=== PATIENT | female | born 1970 | race Caucasian/White ===

== ENCOUNTER 2023-01-12 15:11 | Outpatient (CLI) | payer OTHER, SELFPAY ==
--- NOTE | 2023-01-12 15:30 | CRLHL7_ITS ---
For Patients: As a result of the Cures Act, medical imaging exams and procedure reports are released immediately into your electronic medical record. You may view this report before your referring provider. If you have questions, please contact your health care provider. DXA BONE MINERAL DENSITY STUDY, 01/12/2023 Reason for exam: Hyperparathyroid disease. Current height (inches): 64.0 Weight (lbs.): 235.0 Menopause age: 32 Ethnicity: White 1. Have you had a previous hip or vertebral fracture? No. 2. Have you had any fractures during your adult life which did not result from significant trauma (e.g., auto accident)? No. 3. Did either of your parents have a hip fracture? No. 4. Do you smoke? No. 5. Have you ever taken Glucocorticoids? No. 6. Do you have rheumatoid arthritis? No. 7. Do you have secondary osteoporosis? No. 8. Do you drink 3 or more alcoholic drinks per day? No. 9. Are you being treated for osteoporosis? No. 10. Have you ever taken any of the following medications: Actonel, Evista, Fosamax, Miacalcin, Reclast, Boniva, Forteo, HRT (i.e., estrogen/hormone therapy), Protelos, Prolia, Vitamin D, Calcium, other ??? please specify. ANSWER: Yes; vitamin D, calcium. 11. Do you have any of the following medical conditions: Anorexia or bulimia, asthma or emphysema, end stage renal disease, hyperparathyroidism, any seizure disorders, cancer, inflammatory bowel diseases, hysterectomy, other ??? please specify. ANSWER: Yes; hyperparathyroidism, inflammatory bowel disease, hysterectomy. 12. What was your maximum height (inches)? 65. 13. Do you perform weightbearing exercise regularly? No. 14. Do you regularly consume dairy products? No. 15. Do you drink caffeinated beverages? Yes. 16. At what age did your period start? 10. 17. Are you premenopausal? No. 18. How many full-term pregnancies have you had? 3. 19. Have you ever missed your period for more than 6 months in a row (not including or menopause)? No. TECHNIQUE: Bone mineral density study was performed using the [employer]. FINDINGS: The results of the study expressed as bone mineral density (BMD) are as follows: Lumbar Spine L1 to L4: BMD: 1.281 g/cm2. T-score: 2.1. Z-score: 3.1. Neck Left: BMD: 0.983 g/cm2. T-score: 1.2. Z-score: 2.2. Right: BMD: 1.048 g/cm2. T-score: 1.8. Z-score: 2.8. Total Left: BMD: 1.313 g/cm2. T-score: 3.0. Z-score: 3.7. Right: BMD: 1.347 g/cm2. T-score: 3.3. Z-score: 3.9. IMPRESSION: Normal bone density. LONDON RONQUILLO M.D. Diagnostic Radiologist [email or web address] Transcribed: 4:[address]/Dictated by: London Ronquillo MD @ 01/13/2023 5:50:00 AM (Electronically Signed)
--- NOTE | 2023-01-12 16:00 | CRLHL7_ITS ---
For Patients: As a result of the Cures Act, medical imaging exams and procedure reports are released immediately into your electronic medical record. You may view this report before your referring provider. If you have questions, please contact your health care provider. INDICATION: Hypothyroidism COMPARISON: none TECHNIQUE: Monterroso scale and color Doppler images were acquired of the thyroid gland. FINDINGS: Right thyroidectomy. Left thyroid lobe is diffusely enlarged and heterogeneous measuring 7.6 x 3.0 x 2.5 cm. The isthmus is thickened measuring 1.6 cm. There are no suspicious masses or nodules. The color Doppler images demonstrate normal vascularity. There is no evidence of cervical lymphadenopathy or parathyroid mass. IMPRESSION: Diffusely enlarged and heterogeneous left thyroid lobe. No suspicious nodule. No adenopathy. Dictated by London Dalal MD @ 01/13/2023 8:24:40 AM (Electronically Signed)
== END 2023-01-12 15:12 | disposition home or self-care (01) ==
LOC: RAD 15:11
PROVIDERS: PCP Internal Medicine Endocrinology, Diabetes & Metabolism; Visit Provider Internal Medicine Endocrinology, Diabetes & Metabolism
DX: E21.3 Hyperparathyroidism, unspecified (principal); E03.9 Hypothyroidism, unspecified
CPT/HCPCS: 76536; 77080

== ENCOUNTER 2023-11-17 12:23 | Outpatient (CLI) | payer BC, SELFPAY ==
--- OUTSIDE RECORDS SUMMARY | 2023-11-17 12:30 | XMS_ITS | Encounter Summary ---
Author Organization [facility] Address [address] [place] [address]. [place] [address] Care Team Providers Care Radio Division Captain Name Role Phone Tarsha Zelaya PA-C Unavailable +- [phone] Tarsha Zelaya PA-C Primary Care Provid er Reason for Referral * Consultation (Routine: Next available opening) - Pending Review Specialty Diagnoses / Procedures Referred By Fredy french Referred To Contact Gastroenterology Diagnoses Epigastric pain Valeria Mon MD [address] [place] [address] [facility] [address] [place] [address] Referral ID Status Reason Start Date Expiration Date V isits Requested Visits Authorized [id number] Pending Review 08/18/2023 08/17/2024 1 1 Comments Please be aware that coverage of these services is subject to the terms and limitations of your health insurance plan. Call member services at your health plan with any benefit or coverage questions. [facility] [address] [facility] [address] - appt line [phone] - fax * Diagnostic Imaging Ultrasound (Routine) - Pending Review Specialty Diagnoses / Procedures Referred By Contac t Referred To Contact Diagnoses Epigastric pain Procedures US Abdomen Complete Valeria Mon MD [address] [id number] [facility] [id number] [place] [address] [address] [place] [address] Referral ID Status Reason Start Date Expiration Date V isits Requested Visits Authorized [id number] Pending Review 08/18/2023 08/17/2024 1 1 * Diagnostic Imaging Other (Routine: Next available opening) - Pending Review Specialty Diagnoses / Procedures Referred By Contac t Referred To Contact Diagnoses Epigastric pain Valeria Mon MD [address], [place] [address] [place] [address] Referral ID Status Reason Start Date Expiration Date V isits Requested Visits Authorized [id number] Pending Review 08/18/2023 08/17/2024 1 1 Question Answer Preferred Location: External Affiliated Partners External Affiliated Partner Locations: N: [facility] - Various Locations N: [facility] N: [facility] - University Scheduling Instructions: Please call to schedule your appointment Class External referral [5] Comments Prior authorization is required for MRI/MRA, CT, Dexa Scans and Worker's Compensation cases. External Affiliated Partners Please call to schedule your appointment Reason for Visit * Reason Comments Recheck Medication Fasting today, refil l medications Encounter Details Date Type Department Care Team (Late st Contact Info) Description 08/18/2023 9:30 AM CDT Office Visit [facility] [address] [place] [address] [address] [phone] Valeria Mon MD [address] [place] [address] Epigastric pain (Primary Dx); Mixed hyperlipidemia; Essential hypertension, benign; Hypothyroidism, unspecified type; Type 2 diabetes mellitus without complication, without long-term current use of insulin (H); Gastroesophageal reflux disease without esophagitis; Migraine without aura and without status migrainosus, not intractable; Herpes simplex virus infection; Seasonal allergic rhinitis due to other allergic trigger Social History Tobacco Use Types Packs/Day Years Used Date Smoking Tobacco: Never Passive Smoke Exposure: Never Smokeless Tobacco: Never Alcohol Use Standard Drinks/Week Comments Yes 0.8 (1 standard drink = 0.6 oz p ure alcohol) occ PHQ-2 Answer Date Recorded PHQ-2 Score 0 08/18/2023 Adolescent Education Answer Date Record ed Getting School Help Needed Not on file 11/26 Sex and Gender Information Value Date Recorded Sex Assigned at Female 06/11/2021 3:02 PM CDT Gender Identity Not on file Sexual Orientation Not on file documented as of this encounter Last Filed Vital Signs Vital Sign Reading Time Taken Comments Blood Pressure 118/82 08/18/2023 9:31 AM CDT Pulse 74 08/18/2023 9:31 AM CDT Temperature 36.4 ??C (97.6 ??F) 08/18/2023 9:31 AM CD T Respiratory Rate - - Oxygen Saturation 97% 08/18/2023 9:31 AM CDT Inhaled Oxygen Concentration - - Weight 95.7 kg (211 lb) 08/18/2023 9:31 AM CDT Height - - Body Mass Index 35.66 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 encounter Progress Notes * Valeria Mon MD - 08/18/2023 9:30 AM CDT Assessment & Plan Problem List Items Addressed This Visit Respiratory Allergic rhinitis Relevant Medications fluticasone (FLONASE) 50 MCG/ACT nasal spray Endocrine Hypothyroidism Relevant Medications levothyroxine (SYNTHROID/LEVOTHROID) 125 MCG tablet Diabetes mellitus, type 2 (H) Relevant Medications metFORMIN (GLUCOPHAGE XR) 500 MG 24 hr tablet levothyroxine (SYNTHROID/LEVOTHROID) 125 MCG tablet Other Relevant Orders ALBUMIN RANDOM URINE QUANTITATIVE (BFP) (Completed) FOOT EXAM NO CHARGE [07804.114] (Completed) HEMOGLOBIN A1C (BFP) (Completed) VENOUS COLLECTION (Completed) Circulatory Essential hypertension, benign Relevant Medications chlorthalidone (HYGROTON) 25 MG tablet losartan (COZAAR) 50 MG tablet potassium chloride ER (MICRO-K) 10 MEQ CR capsule Other Visit Diagnoses Epigastric pain - Primary Relevant Orders Radiology Referral (Affiliate Use Only) US Abdomen Complete Adult GI Contracts Representative Referral - Consult Only - To a [facility] Location (Use POS/Location) Comprehensive Metobolic Panel (BFP) Lipase ([facility]) Mixed hyperlipidemia Relevant Medications atorvastatin (LIPITOR) 20 MG tablet Gastroesophageal reflux disease without esophagitis Relevant Medications omeprazole (PRILOSEC) [address] capsule Migraine without aura and without status migrainosus, not intractable Herpes simplex virus infection 1. Mixed hyperlipidemia She is doing well on the medications, refilled. - atorvastatin (LIPITOR) 20 MG tablet; Take 1 tablet (20 mg) by mouth daily Dispense: 90 tablet; Refill: 1 2. Essential hypertension, benign Controlled on medications, refilled. - chlorthalidone (HYGROTON) 25 MG tablet; Take 1 tablet (25 mg) by mouth daily Dispense: 90 tablet;Refill: 1 - losartan (COZAAR) 50 MG tablet; Take 1 tablet (50 mg) by mouth daily Dispense: 90 tablet; Refill:1 - potassium chloride ER (MICRO-K) 10 MEQ CR capsule; Take 1 capsule (10 mEq) by mouth daily Dispense: 90 capsule; Refill: 1 3. Hypothyroidism, unspecified type Now followed by endocrinology. - levothyroxine (SYNTHROID/LEVOTHROID) 125 MCG tablet; Take 2 tablets (250 mcg) by mouth daily 4. Type 2 diabetes mellitus without complication, without long-term current use of insulin (H) She is doing well on medications, blood sugars are controlled. Refilled. - metFORMIN (GLUCOPHAGE XR) 500 MG 24 hr tablet; Take 1 tablet (500 mg) by mouth daily (with dinner) Dispense: 90 tablet; Refill: 1 - ALBUMIN RANDOM URINE QUANTITATIVE (BFP) - FOOT EXAM NO CHARGE [26447.114] - HEMOGLOBIN A1C (BFP) - VENOUS COLLECTION 5. Gastroesophageal reflux disease without esophagitis Mostly controlled but she is having episodes of epigastric pain. - omeprazole (PRILOSEC) [address] capsule; TAKE 1 CAPSULE BY MOUTH DAILY 30 MINUTES BEFORE BREAKFASTAND THEN EAT BREAKFAST Dispense: 90 capsule; Refill: 1 6. Migraine without aura and without status migrainosus, not intractable Followed by neurology. 7. Herpes simplex virus infection 8. Epigastric pain Ultrasound abdomen, she may need another EGD but has seen Gi in the past. So I will refer her back to see [facility] for consult apt. Also check lipase. - Radiology Referral (Affiliate Use Only) - US Abdomen Complete - Adult GI Contracts Representative Referral - Consult Only - To a [facility] Location (Use POS/Location) - Comprehensive Metobolic Panel (BFP) - Lipase ([facility]) 9. Seasonal allergic rhinitis due to other allergic trigger Refilled. Flonase. - fluticasone (FLONASE) 50 MCG/ACT nasal spray; [place] 1 spray into both nostrils daily Dispense: 16g; Refill: 1 BMI Estimated body mass index is 35.66 kg/m?? as calculated from the following: Height as of 02/18/23: 1.638 m (5' 4.5). Weight as of this encounter: 95.7 kg (211 lb). FUTURE APPOINTMENTS: - Follow-up visit in 6 months, we manage her chronic medical care. No follow-ups on file. Valeria Mon MD [facility] Subjective Nursing Notes: Petty Holloway [facility] 08/18/2023 9:37 AM Signed Chief Complaint Patient presents with Recheck Medication Fasting today, refill medications Pre-visit Screening: Immunizations: not up to date - shingrix at pharmacy Colonoscopy: is up to date Mammogram: is up to date Asthma Action Test/Plan: NA PHQ9: NA GAD7: NA Questioned patient about current smoking habits Pt. has never smoked. Ok to leave detailed message on voice mail for today's visit only Yes, phone # [phone] Shaneka Momin is a 53 year old female who presents to clinic today for the following health issues HPI Here for refills on her medications and labs. Diabetes: blood sugars at home are good. She is doingwell on her medications. Other meds:no problems or concerns, is taking regularly: blood pressure, lipids, Over the past few months a few times has pain in epigastric area, couple of minutes or 20 min then it goes away. Has a hiatal hernia. Thinks it could be due to acid reflux. Has had gallbaldder out.istaking omeprazole regularly. It's been a couple of years since last egd, is due to go back to see [facility]. Has seen them in the past. Last summer was last time she saw them. Review of Systems Constitutional, HEENT, cardiovascular, pulmonary, gi and gu systems are negative, except as otherwise noted. Objective BP 118/82 (BP Location: Right arm, Patient Position: Sitting, Cuff Size: Adult Large) Pulse 74 Temp 97.6 ??F (36.4 ??C) (Temporal) Wt 95.7 kg (211 lb) LMP 09/11/2008 SpO2 97% BMI 35.66 kg/m?? Body mass index is 35.66 kg/m??. Physical Exam GENERAL: alert and no distress RESP: lungs clear to auscultation - no rales, rhonchi or wheezes CV: regular rate and rhythm, normal S1 S2, no S3 or S4, no murmur, click or rub, no peripheral edema MS: no gross musculoskeletal defects noted, no edema NEURO: Normal strength and tone, mentation intact and speech normal PSYCH: mentation appears normal, affect normal/bright Diabetic foot exam: normal DP and PT pulses, no trophic changes or ulcerative lesions, and normal sensory exam Results for orders placed or performed in visit on 08/18/23 ALBUMIN RANDOM URINE QUANTITATIVE (BFP) Status: None Result Value Ref Range Albumin mg/L 30 30 Creatinine Urine mg/dL 200 300 mg/dL Albumin Urine mg/g Cr <30 30 MG/G Creatinine HEMOGLOBIN A1C (BFP) Status: Abnormal Result Value Ref Range Hemoglobin A1C 5.9 (A) 4 - 5.6 % documented in this encounter Nursing Notes * Petty Holloway CMA - 08/18/2023 9:30 AM CDT Chief Complaint Patient presents with Recheck Medication Fasting today, refill medications Pre-visit Screening: Immunizations: not up to date - shingrix at pharmacy Colonoscopy: is up to date Mammogram: is up to date Asthma Action Test/Plan: NA PHQ9: NA GAD7: NA Questioned patient about current smoking habits Pt. has never smoked. Ok to leave detailed message on voice mail for today's visit only Yes, phone # [phone] documented in this encounter Plan of Treatment Upcoming Encounters Date Type Department Care Team (Late st Contact Info) Description 12/30/2023 1:00 PM CDT Office Visit [facility] [address] [place] [address] [address] [place] [phone] Tarsha Zelaya PA-C [address] [place] [address] Scheduled Referrals Name Type Priority Associated Diagnoses Orde r Schedule Radiology Referral (Affiliate Use Only) Referral Routine: Next available opening Epigastric pain Ordered: 08/18/2023 Adult GI Contracts Representative Referral - Consult Only - To a [facility] Location (Use POS/Location) Referral Routine: Next available opening Epigastric pain Ordered: 08/18/2023 documented as of this encounter Procedures Procedure Name Priority Date/Time Associated Diagnosis Comments US ABDOMEN COMPLETE Routine 08/23/2023 Epigastric pain LIPASE ([facility]) Routine 08/18/2023 10:32 AM CDT Epigastric pain ALBUMIN RANDOM URINE QUANTITATIVE (BFP) Routine 08/18/2023 10:03 AM CDT Type 2 diabetes mellitus without complication, without long-term current use of insulin (H) HEMOGLOBIN A1C (BFP) Routine 08/18/2023 9:42 AM CDT Type 2 diabetes mellitus without complication, without long-term current use of insulin (H) VA COLLECTION VENOUS BLOOD VENIPUNCTURE Routine 08/18/2023 9:33 AM CDT Type 2 diabetes mellitus without complication, without long-term current use of insulin (H) COMPREHENSIVE METABOLIC PANEL (BFP) Routine 08/18/2023 Epigastric pain documented in this encounter Results * US Abdomen Complete (08/23/2023) Anatomical Region Laterality Modality Abdomen/Pelvis Other Narrative 08/23/2023 [address] [facility], [address] [place] [address] University : 1970 Req Phys: Valeria Mon MD Patient name: SHANEKA MOMIN Clinic: [facility] Dept No: [id number] US ABDOMEN COMPLETE Exam Date: 08/23/2023 EXAM: US ABDOMEN COMPLETE LOCATION: [facility] DATE: 08/23/2023 INDICATION: Epigastric pain. COMPARISON: MR abdomen 07/24/2020 TECHNIQUE: Complete abdominal ultrasound. FINDINGS: GALLBLADDER: Surgically removed. BILE DUCTS: No biliary dilatation. The common duct measures 3 mm. LIVER: Hepatomegaly measuring 18.8 cm. The hepatic echogenicity is increased. Smooth liver contour. No focal mass. RIGHT KIDNEY: Normal size. Normal echogenicity with no hydronephrosis. A masslike echogenic lesion in the interpolar to lower right renal pole measures 1.8 cm LEFT KIDNEY: Normal size. Normal echogenicity with no hydronephrosis or mass. SPLEEN: Mild splenomegaly measuring 14 cm. PANCREAS: The visualized portions are normal. AORTA: Normal in caliber. IVC: Normal where visualized. No ascites. IMPRESSION: 1. Hepatomegaly and hepatic steatosis. 2. Mild splenomegaly. 3. Benign right renal angiomyolipoma. 4. Cholecystectomy. TNOIA ROMANO M.D. Password protected electronic signature by: TASHA Trans: SI Date Of Trans: 08/23/2023 9:11:00AM Page 1 of 2 SHANEKA MOMIN : 1970 Exam: US ABDOMEN COMPLETE Date report approved and signed by interpreting physician: 08/23/2023 9:09:00AM Page 2 of 2 Valeria Mon MD IMG US ORDERABLES * (ABNORMAL) Lipase ([facility]) (08/18/2023 10:32 AM CDT) Lipase 89(H) 7 - 60 U/L [facility] Blood 08/18/2023 10:3 2 AM CDT 08/19/2023 1:38 AM CDT Narrative Resulting Agency Comment Performing Organization Information: ? CB ? [facility] ? [address] [place] [address] ? Oscar Becerril Valeria Mon MD LAB - NON-BEAKER BLO OD LABS [facility] [address] [phone] * ALBUMIN RANDOM URINE QUANTITATIVE (BFP) (08/18/2023 10:03 AM CDT) Albumin mg/L 30 30 [facility] Creatinine Urine mg/dL 200 300 mg/dL [facility] Albumin Urine mg/g Cr <30 30 MG/G Creatinine [facility] Urine 08/18/2023 10:0 3 AM CDT Valeria Mon MD LAB - NON-DELMY NON -BLOOD Performing Organization Address City/[facility]/ZIP Co de Phone Number [facility] INTER[facility] * (ABNORMAL) HEMOGLOBIN A1C (BFP) (08/18/2023 9:42 AM CDT) Hemoglobin A1C 5.9(A) 4 - 5.6 % [facility] Blood 08/18/2023 9:42 AM CDT Valeria Mon MD LAB - NON-DELMY BLO OD LABS [facility] * (ABNORMAL) Comprehensive Metobolic Panel (BFP) (08/18/2023) Carbon Dioxide 30.9 20 - 32 mmol/L [facility] Creatinine 0.95 0.60 - 1.30 mg/dL [facility] Glucose 111(A) 60 - 99 mg/dL [facility] Sodium 140.3 135 - 146 mmol/L [facility] Potassium 3.88 3.5 - 5.3 mmol/L [facility] Chloride 101.0 98 - 110 mmol/L [facility] Protein Total 7.5 6.1 - 8.1 g/dL [facility] Albumin 4.3 3.6 - 5.1 g/dL [facility] Alkaline Phosphatase 78 33 - 130 U/L [facility] ALT 44(A) 0 - 32 U/L [facility] AST 49(A) 0 - 35 U/L [facility] Bilirubin Total 0.7 0.2 - 1.2 mg/dL [facility] Urea Nitrogen 16 7 - 25 mg/dL [facility] Calcium 9.3 8.6 - 10.3 mg/dL [facility] BUN/Creatinine Ratio 17 6 - 32 [facility] Blood 08/18/2023 Valeria Mon MD LAB - NON-BEAKER BLO OD LABS [facility] documented in this encounter Visit Diagnoses Diagnosis Epigastric pain- Primary Abdominal pain, epigastric Mixed hyperlipidemia Essential hypertension, benign Hypothyroidism, unspecified type Type 2 diabetes mellitus without complication, without long-term current use of insulin (H) Gastroesophageal reflux disease without esophagitis Esophageal reflux Migraine without aura and without status migrainosus, not intractable Migraine without aura, without mention of intractable migraine without mention of status migrainosus Herpes simplex virus infection Herpes simplex without mention of complication Seasonal allergic rhinitis due to other allergic trigger documented in this encounter Additional Health Concerns Assessment Noted Time PHQ-9 Depression Total Score: 6 11/02/19 19 9:35 AM CDT documented as of this encounter Care Teams Radio Division Captain Relationship Specialty Start Date End Date Tarsha Zelaya PA-C [address] [id number] PCP - General Family Medicine 08/14/20 Tarsha Zelaya PA-C [address] [address] Assigned PCP 07/29/19 documented as of this encounter
--- OUTSIDE RECORDS SUMMARY | 2023-11-17 12:30 | XMS_ITS | Encounter Summary ---
Author Organization [facility] Address [address] [place] [address] Care Team Providers Care Programming Instructor Name Role Phone Tarsha Zelaya PA-C Unavailable +- [phone] Fermín Santos Unavailable Unavailable Tarsha Zelaya PA-C Primary Care Provid er Encounter Details Date Type Department Care Team (Late Contact Info) Description 07/04/2022 MyC Medical Advice [facility] [address] [place] [phone] Tarsha Zelaya PA-C [address] [place] [address] Social History Tobacco Use Types Packs/Day Years Used Date Smoking Tobacco: Never Smokeless Tobacco: Never Alcohol Use Standard Drinks/Week Comments Yes 0.8 (1 standard drink = 0.6 oz p ure alcohol) occ PHQ-2 Answer Date Recorded PHQ-2 Score 0 03/04/2022 Sex and Gender Information Value Date Recorded Sex Assigned at Female 06/11/2021 3:02 PM CDT Gender Identity Not on file Sexual Orientation Not on file documented as of this encounter Plan of Treatment Upcoming Encounters Date Type Department Care Team (Late Contact Info) Description 12/30/2023 1:00 PM CDT Office Visit [facility] [address] [phone] Tarsha Zelaya PA-C [address] [address] documented as of this encounter Visit Diagnoses Not on filedocumented in this encounter Additional Health Concerns Assessment Noted Time PHQ-9 Depression Total Score: 6 11/02/19 19 9:35 AM CDT documented as of this encounter Care Teams Programming Instructor Relationship Specialty Start Date End Date Tarsha Zelaya PA-C [address] [address] PCP - General Family Medicine 08/14/20 Tarsha Zelaya PA-C [address] [address] Assigned PCP 07/29/19 Fermín Santos MTM Pharmacist 10/11/19 01/02/23 documented as of this encounter
--- OUTSIDE RECORDS SUMMARY | 2023-11-17 12:30 | XMS_ITS | Clinical Summary ---
Author Organization [facility] Address [address] [place] [address]. [place] [address] Care Team Providers Care Steel Cutter Name Role Phone Tarsha Zelaya PA-C Unavailable [phone] Tarsha Zelaya PA-C Primary Care Provid er Allergies Active Allergy Reactions Criticality Noted Date Comments Amlodipine Low 10/11/2017 Peripheral edema Erythromycin Medium GI upset Hydrochlorothiazide Fatigue Low 10/11/2017 Penicillins Hives Perry 01/18/2012 Rash and swelling Medications Medication Sig Dispensed Refills Start Date End Date Status loratadine (CLARITIN) 10 MG tablet Take 10 mg by mouth daily. Active blood glucose monitoring (ACCU-CHEK KIM PLUS) meter device kitIndications:Type 2 diabetes mellitus without complication, without long-term current use of insulin (H) Use to test blood sugar 1 times daily or as directed. 1 kit 09/06/2019 Active blood glucose (NO BRAND SPECIFIED) lancets standardIndications: Type 2 diabetes mellitus without complication, without long-term current use of insulin (H) Use to test blood sugar 1 times daily or as directed. 90 each 09/06/2019 Active blood glucose (NO BRAND SPECIFIED) test stripIndications:Typ e 2 diabetes mellitus without complication, without long-term current use of insulin (H) Use to test blood sugar 1 times daily or as directed. 100 strip 09/06/2019 Active aspirin (ASA) 81 MG EC tabletIndications:Ty pe 2 diabetes mellitus without complication, without long-term current use of insulin (H) Take 1 tablet (81 mg) by mouth daily 10/26/2019 Active albuterol (PROAIR HFA/PROVENTIL HFA/VENTOLIN HFA) 108 (90 Base) MCG/ACT inhalerIndications:A cute bronchitis, unspecified organism Inhale 2 puffs into the lungs every 6 hours 18 g 1 02/05/2022 Active valACYclovir (VALTREX) 500 MG tabletIndications:He rpes simplex virus infection Take 1 tablet (500 mg) by mouth 2 times daily 12 tablet 1 08/18/2022 Active SUMAtriptan (IMITREX) 100 MG tabletIndications:Mi graine without aura and without status migrainosus, not intractable Take 1 tablet (100 mg) by mouth at onset of headache for migraine May repeat in 2 hours. Max 2 tablets/24 hours. 18 tablet 1 08/18/2022 Active calcium carbonate-vitamin D (OSCAL) 500-5 MG-MCG tablet Take 1 tablet by mouth daily 11/26/2022 Active OZEMPIC, 0.25 OR 0.5 MG/DOSE, 2 MG/3ML pen Inject 0.25 mg Subcutaneous every [address] Genao 01/31/2023 Active atorvastatin (LIPITOR) 20 MG tabletIndications:Mi xed hyperlipidemia Take 1 tablet (20 mg) by mouth daily 90 tablet 1 08/18/2023 Active chlorthalidone (HYGROTON) 25 MG tabletIndications:Es sential hypertension, benign Take 1 tablet (25 mg) by mouth daily 90 tablet 1 08/18/2023 Active losartan (COZAAR) 50 MG tabletIndications:Es sential hypertension, benign Take 1 tablet (50 mg) by mouth daily 90 tablet 1 08/18/2023 Active metFORMIN (GLUCOPHAGE XR) 500 MG 24 hr tabletIndications:Ty pe 2 diabetes mellitus without complication, without long-term current use of insulin (H) Take 1 tablet (500 mg) by mouth daily (with dinner) 90 tablet 1 08/18/2023 Active omeprazole (PRILOSEC) [address] capsuleIndications:G astroesophageal reflux disease without esophagitis TAKE 1 CAPSULE BY MOUTH DAILY 30 MINUTES BEFORE BREAKFAST AND THEN EAT BREAKFAST 90 capsule 08/18/2023 Active potassium chloride ER (MICRO-K) 10 MEQ CR capsuleIndications:E ssential hypertension, benign Take 1 capsule (10 mEq) by mouth daily 90 capsule 1 08/18/2023 Active fluticasone (FLONASE) 50 MCG/ACT nasal sprayIndications:Sea jose alberto allergic rhinitis due to other allergic trigger [place] 1 spray into both nostrils daily 16 g 1 08/18/2023 Active levothyroxine (SYNTHROID/LEVOTHROI D) 125 MCG tabletIndications:Hy pothyroidism, unspecified type Take 2 tablets (250 mcg) by mouth daily 08/18/2023 Active Active Problems Problem Noted Date Diagnosed Date ALT (SGPT) level raised 03/04/2022 Chronic diarrhea 03/04/2022 Gastro-esophageal reflux disease with esophagiti s 03/04/2022 Salmonella infection 03/04/2022 Terminal ileitis 03/04/2022 Disorder of stomach 03/04/2022 Gastric polyp 03/04/2022 History of partial thyroidectomy 03/27/2021 Diaphragmatic hernia 10/27/2020 Polyp of duodenum 10/27/2020 Disorder of esophagus 10/27/2020 Obstruction of esophagus 10/27/2020 Crohn's disease of small intestine 07/18/2020 Diabetes mellitus, type 2 05/04/2019 Morbid obesity 07/27/2017 Herpes simplex vulvovaginitis 12/10/2015 Noninfectious gastroenteritis 11/19/2013 Dysphagia 10/31/2013 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 Shaneka Neville has no plan or code status on file. Discussed available resources and provided with information. Confirmed code status reflects current choices pending further ACP discussions. Confirmed/documented designated decision maker(s). See permanent comments section of demographics in clinical tab. Added by Sarah Rea on 05/14/2014 Essential hypertension, benign 04/27/2011 High triglycerides 04/27/2011 Allergic rhinitis 10/29/2009 Overview: Problem list name updated by automated process. Provider to review Stricture and stenosis of esophagus 11/28/2002 Vitiligo 11/23/2001 Other acne 01/10/2001 Hypothyroidism Overview: Problem list name updated by automated process. Provider to review Resolved Problems Problem Noted Date Diagnosed Date Resolved Date Diarrhea 07/03/2020 08/18/2023 Non morbid obesity due to excess calories 05/09/2015 08/18/2023 Health Correction 01/18/2012 08/22/2023 Overview: State Tier Level: Tier 1 Status: n/a Cordwood Cutter: See Letters for [facility] Care Plan Papanicolaou smear of cervix with atypical squamous cells of undetermined significance (ASC-US) 12/10/2004 11/01/2007 Pure hyperglyceridemia 11/27/200304/27 Dysphagia 11/23/2001 10/29/2006 Overview: Problem list name updated by automated process. Provider to review and confirm [employer] Update utility Allergic rhinitis due to pollen 10/29/2009 Obesity 05/09/2015 Overview: Problem list name updated by automated process. Provider to review Encounters Date Type Department Care Team Description 08/18/2023 9:30 AM CDT Office Visit [facility] [address] [place] [address] Valeria Mon MD Epigastric pain (Primary Dx); Mixed hyperlipidemia; Essential hypertension, benign; Hypothyroidism, unspecified type; Type 2 diabetes mellitus without complication, without long-term current use of insulin (H); Gastroesophageal reflux disease without esophagitis; Migraine without aura and without status migrainosus, not intractable; Herpes simplex virus infection; Seasonal allergic rhinitis due to other allergic trigger 08/18/2023 Travel from Last 3 Months Immunizations Name Administration Dates Next Due COVID-19 MONOVALENT 12+ (Pfizer) 04/22/2020,03/08 HepB 10/20/2005,04/21/2005,03/09/2005 Influenza (IIV3) PF 10/28/2011, 1,01/05/2008, 999,01/13/1998,12/21/1996 Influenza Vaccine >6 months,quad, PF ,02/05/2022,02/11/2021, 020,01/19/2017,05/09/2015 Influenza Vaccine, 6+MO IM (QUADRIVALENT W/PRESERVATIVES) 12/14/2018 TD,PF 7+ (Tenivac) 10/29/2006,06/05/1996 TDAP (Adacel,Boostrix) 02/05/2022 TDAP Vaccine (Boostrix) 10/28/2011 Family History Medical History Relation Comments C.A.D. Father age 66 [place] Hypertension Father Cancer Maternal Grandfather colon Abdominal Aortic Aneurysm Maternal Grandmother n on-smoker Hypertension Maternal Grandmother Thyroid Disease Maternal Grandmother Aneurysm Mother abdominal? Diabetes Son Relation Status Comments Father Maternal Grandfather Maternal Grandmother Mother Son Social History Tobacco Use Types Packs/Day Years [...] on file Sexual Orientation Not on file Last Filed Vital Signs Vital Sign Reading Time Taken Comments Blood Pressure 118/82 08/18/2023 9:31 AM CDT Pulse 74 08/18/2023 9:31 AM CDT Temperature 36.4 ??C (97.6 ??F) 08/18/2023 9:31 AM CD T Respiratory Rate 16 03/04/2022 11:26 AM DOUBLE BACK OPERATOR Oxygen Saturation 97% 08/18/2023 9:31 AM CDT Inhaled Oxygen Concentration - - Weight 95.7 kg (211 lb) 08/18/2023 9:31 AM CDT Height 163.8 cm (5' 4.5) 02/18/2023 8:09 AM DOUBLE BACK OPERATOR Body Mass Index 35.66 02/18/2023 8:09 AM DOUBLE BACK OPERATOR Plan of Treatment Upcoming Encounters Date Type Department Care Team (Late st Contact Info) Description 12/30/2023 1:00 PM CDT Office Visit [facility] [address] [place] [address] Tarsha Zelaya PA-C [address] [facility] [address] [place] [address] Health Maintenance Due Date Last Done Comments ANNUAL REVIEW OF HM ORDERS 1970 CT COLONOGRAPHY 1970 FIT 1970 FLEX SIG 1970 sDNA (Cologuard) 1970 TSH W/FREE T4 REFLEX 02/05/2023 02/05/2022, 03/19/2021, 02/11/2021, Additional history exists COVID-19 Vaccine ( season) 2023 02/08/2021, 04/22/2020, 04/01/2020 INFLUENZA VACCINE (#1) 2023 , 02/05/2022, 02/11/2021, Additional history exists YEARLY PREVENTIVE VISIT 11/27/2023 11/27/19 23, 01/19/2017, 10/28/2011, Additional history exists ZOSTER IMMUNIZATION (1 of 2) 11/27/2023 Postponed from 05/27/2019 (Not Able to Schedule At This Time) EYE EXAM 12/04/2023 12/03/2022, 11/05, 11/12/2020, Additional history exists A1C 02/17/2024 08/18/2023, 02/04, 08/18/2022, Additional history exists LIPID 02/19/2024 02/18/2023, 08/05, 02/05/2022, Additional history exists MAMMO SCREENING 05/05/2024 05/06/2023, 04/08, 04/03/2021, Additional history exists BMP 08/17/2024 08/18/2023, 02/04, 08/18/2022, Additional history exists DIABETIC FOOT EXAM 08/17/2024 08/18/2023, 0 08/18/2023, 08/18/2022, Additional history exists MICROALBUMIN 08/17/2024 08/18/2023, 08/05, 08/20/2021, Additional history exists ADVANCE CARE PLANNING 07/10/2025 07/10/2020 , 05/14/2014, 05/08/2013, Additional history exists HPV TEST 11/27/2027 11/26/2022 PAP 11/27/2027 11/26/2022, 01/05, 09/21/2010, Additional history exists COLONOSCOPY 07/03/2030 07/03/2020, 11/19/2013 COLORECTAL CANCER SCREENING 07/03/2030 DTAP/TDAP/TD IMMUNIZATION (3 - Td or Tdap) 02/06/2032 02/05/2022, 10/28/2011, 10/29/2006, Additional history exists HEPATITIS B IMMUNIZATION Completed 006, 04/21/2005, 03/09/2005 Pneumococcal Vaccine: Pediatrics (0 to 5 Years) and At-Risk Patients (6 to 64 Years) Addressed 03/21/2020 (Not Needed) Overridden with the intention of not completing the topic HEPATITIS C SCREENING Completed 08/18/2022 PHQ-2 (once per calendar year) Completed 08/18/2023, 08/18/2022, 03/04/2022, Additional history exists HIV SCREENING Discontinued HPV IMMUNIZATION Aged Out No longer e ligible based on patient's age to complete this topic MENINGITIS IMMUNIZATION Aged Out No l onger eligible based on patient's age to complete this topic RSV MONOCLONAL ANTIBODY Aged Out No l onger eligible based on patient's age to complete this topic Procedures Procedure Name Priority Date/Time Associated Diagnosis Comments UPPER GI ENDOSCOPY - HIM SCAN Routine 09/12/2023 US ABDOMEN COMPLETE Routine 08/23/2023 Epigastric pain LIPASE ([facility]) Routine 08/18/2023 10:32 AM CDT Epigastric pain ALBUMIN RANDOM URINE QUANTITATIVE (BFP) Routine 08/18/2023 10:03 AM CDT Type 2 diabetes mellitus without complication, without long-term current use of insulin (H) HEMOGLOBIN A1C (BFP) Routine 08/18/2023 9:42 AM CDT Type 2 diabetes mellitus without complication, without long-term current use of insulin (H) TX COLLECTION VENOUS BLOOD VENIPUNCTURE Routine 08/18/2023 9:33 AM CDT Type 2 diabetes mellitus without complication, without long-term current use of insulin (H) COMPREHENSIVE METABOLIC PANEL (BFP) Routine 08/18/2023 Epigastric pain MA SCREENING BILATERAL W/ DAVID Routine 05/06/2023 LIPID PANEL (BFP) Routine 02/18/2023 Type 2 diabetes mellitus without complication, without long-term current use of insulin (H) Mixed hyperlipidemia DIABETIC (DILATED) EYE EXAM Routine 12/03/2022 THINPREP PAP AND HPV MRNA E6/E7 ([facility]) Routine 11/26/2022 1:57 PM CDT Screening for cervical cancer HEP C ANTISE Routine 08/18/2022 9:20 AM CDT Need for hepatitis C screening test TSH WITH FREE T4 REFLEX ([facility]) Routine 02/05/2022 2:46 PM DOUBLE BACK OPERATOR Hypothyroidism, unspecified type COLONOSCOPY - HIM SCAN Routine 07/03/2020 from Last 3 Months or Most Recently Relevant to Health Maintenance Results * Upper GI Endoscopy - HIM Scan (09/12/2023) Patient Reported PROCEDURES * US Abdomen Complete (08/23/2023) Anatomical Region Laterality Modality Abdomen/Pelvis Other Narrative 08/23/[address] [place] [address], [address] [place] [address] [place] : 1970 Req Phys: Valeria Mon MD Patient name: SHANEKA MOMIN Clinic: [facility] Dept No: [id number] US ABDOMEN COMPLETE Exam Date: 08/23/2023 EXAM: US ABDOMEN COMPLETE LOCATION: [facility] [place] DATE: 08/23/2023 INDICATION: Epigastric pain. COMPARISON: MR [...] 3. Benign right renal angiomyolipoma. 4. Cholecystectomy. TONIA ROMANO M.D. Password protected electronic signature by: TASHA Trans: SI Date Of Trans: 08/23/2023 9:11:00AM Page 1 of 2 SHANEKA MOMIN [place] : 1970 Exam: US ABDOMEN COMPLETE Date report approved and signed by interpreting physician: 08/23/2023 9:09:00AM Page 2 of 2 Valeria Mon MD IMG US ORDERABLES * (ABNORMAL) Lipase ([facility]) (08/18/2023 10:32 AM CDT) Lipase 89(H) 7 - 60 U/L [facility] Blood 08/18/2023 10:3 2 AM CDT 08/19/2023 1:38 AM CDT Narrative Resulting Agency Comment Performing Organization Information: ? [place] ? [facility] ? [address] [place] [address] ? Oscar Becerril Valeria Mon MD LAB - NON-BEAKER SHAYNE OD LABS [facility] [address] [place] [address], [facility] [phone] * ALBUMIN RANDOM URINE QUANTITATIVE ([facility]FP) (08/18/2023 10:03 AM CDT) Albumin mg/L 30 30 [facility] INTERNAL Creatinine Urine mg/dL 200 300 mg/dL [facility] INTERNAL Albumin Urine mg/g Cr <30 30 MG/G Creatinine [facility] INTERNAL Urine 08/18/2023 10:0 3 AM CDT Valeria Mon MD LAB - NON-BEAKER NON -BLOOD [facility] INTERNAL * (ABNORMAL) HEMOGLOBIN A1C (BFP) (08/18/2023 9:42 AM CDT) Hemoglobin A1C 5.9(A) 4 - 5.6 % [facility] INTER[facility] Blood 08/18/2023 9:42 AM CDT Valeria Mon MD LAB - NON-BEAKER BLO OD LABS [facility] INTERNAL * (ABNORMAL) [...] - NON-BEAKER BLO OD LABS [facility] INTERNAL * MA Screening Bilateral w/ David (05/06/2023) MAMMOGRAM Anatomical Region Laterality Modality Breast Bilateral Other Narrative 05/06/[address] [place] [address], [address] [place] [address] [place] : 1970 Req Phys: Tarsha Zelaya PA-C Patient name: SHANEKA MOMIN Clinic: [facility] Dept No: [id number] MAMMOGRAM SCREENING DAVID BILATERAL Exam Date: 05/06/2023 EXAM: MAMMOGRAM SCREENING DAVID BILATERAL LOCATION: [facility] [place] DATE: 05/06/2023 INDICATION: Asymptomatic. Screening Mammogram. COMPARISON: 04/30/22, 04/03/21 BREAST DENSITY: There are scattered areas of fibroglandular density. FINDINGS: Tomosynthesis craniocaudal and mediolateral oblique views were obtained. There is no evidence for spiculated masses, architectural distortion, asymmetry or suspicious calcifications. IMPRESSION: No evidence of malignancy. Recommend routine annual screening mammography. When performed, computer-aided detection was used in the interpretation of this study. ACR 1: Negative. A lay language report of this examination will be mailed to the patient. LIFETIME BREAST CANCER RISK ASSESSMENT SCORE: Lifetime risk of developing breast cancer is 8.4% calculated using the [place] Model and information provided by the patient at the time of screening. The average lifetime risk for developing breast cancer is 12.9% for women born in the [place]. For patients with a lifetime breast cancer risk assessment score of less than 20%, annual screening mammography is recommended. For patients with a lifetime risk of greater than 20%, annual screening mammography supplemented with annual Breast MRI is recommended. Patients in this category are encouraged to discuss this recommendation with their healthcare provider to determine if Breast MRI is appropriate and if so, to obtain a referral and confirm coverage with their health insurance. Recommendations are based on the [employer] Appropriateness Criteria. Patients with a BI-RADS category of 0 should follow the recommendations for further evaluation before considering supplemental screening. Dictated By: ZOË VEGA M.D. Password protected electronic signature by: EMRE Trans: SI Date Of Trans: 05/09/2023 7:59:00AM Date report approved and signed by interpreting physician: 05/09/2023 7:57:00AM Page 1 of 1 Patient Reported IMG MAMMOGRAPHY ORDE RABLES * Lipid Panel (BFP) (02/18/2023) Cholesterol 125 0 - 199 mg/dL [facility] INTERNAL Triglycerides 139 0 - 149 mg/dL [facility] INTERNAL HDL Cholesterol 41 40 - 150 mg/dL [facility] INTERNAL LDL Cholesterol Direct 56 0 - 130 mg/dL [facility] INTERNAL Cholesterol/HDL Ratio 3 0 - 5 [facility] INTERNAL Blood 02/18/2023 Tarsha Zelaya PA-C LAB - NON-BE [facility] BLOOD LABS BFP INTERNAL * DIABETIC (DILATED) EYE EXAM (12/03/2022) Patient Reported PROCEDURES * ThinPrep Pap and HPV (mRNa E6/E7) {HPV always run}(itsDapper) (11/26/2022 1:57 PM CDT) Clinical History SEE COMMENT [facility] Comment:SCREENING LMP SEE COMMENT [facility] Comment:HY PARTIAL Last Pap Diagnosis SEE COMMENT [facility] Comment:[id number] Prev Bx Dx SEE COMMENT [facility] Comment:[id number] Source SEE COMMENT [facility] Comment:Cervix Statement of Adequacy SEE COMMENT [facility] Comment: Satisfactory for evaluation. Endocervical/transformation zone component absent. Descriptive Diagnosis SEE COMMENT [facility] Comment: Cytology Results: Negative for intraepithelial lesion or malignancy. Microarray Operations Vice President: SEE COMMENT [facility] Comment: JXD, CT(ASCP) CT Screening location: [address] ??[address] Comment SEE COMMENT [facility] Comment: EXPLANATORY NOTE: The Pap is a screening test for cervical cancer. It is not a diagnostic test and is subject to false negative and false positive results. It is most reliable when a satisfactory sample, regularly obtained, is submitted with relevant clinical findings and history, and when the Pap result is evaluated along with historic and current clinical information. EFFECTIVE JANUARY 31, 2023, the version of ThinPrep you ordered, commonly known as manual ThinPrep, will be DISCONTINUED. An alternative form of ThinPrep, called ThinPrep Imaging, will continue to be available. For a copy of the client communication (TIS Client Letter) showing TIS test codes, see [email or web address]/Resources, and navigate to ViewbixWoman>Physician Materials>TIS Client Letter. You can also call for test code assistance. HPV mRNA E6/E7 Not Detected Not Detected [facility] Comment: Methodology: Taker Off-Mediated Amplification This assay detects E6/E7 viral messenger RNA (mRNA) from 14 high-risk HPV types (16,18,31,33,35,39,45,51,52,56,58,59,66,68). Cervical sources are required for HPV testing. If a vaginal source from a patient who has had a total hysterectomy with removal of cervix was submitted, please contact the testing laboratory for alternative testing options. For additional information, please refer to http://education.Silentium/faq/WVZ583n9 (This link if provided for information/ educational purposes only.) Cervical 11/26/2022 1:57 PM CDT 11/27/2022 1:34 AM CDT Narrative Resulting Agency Comment Performing Organization Information: ? [place] ? [facility] ? [address] [place] [address] ? Oscar Becerril Tarsha Zelaya PA-C LAB - NON-BE [place] NON-BLOOD [facility] [address] [id number] [phone] * HEPATITIS C ANTIBODY (itsDapper) (08/18/2022 9:20 AM CDT) HCV Antibody NON-REACTI VE NON-REACT BOLIVAR [facility] SIGNAL TO CUT OFF - [facility] 0.08 <1.00 [facility] Comment: HCV antibody was non-reactive. There is no laboratory evidence of HCV infection. In most cases, no further action is required. However, if recent HCV exposure is suspected, a test for HCV RNA (test code 32186) is suggested. For additional information please refer to http://education.Silentium/faq/OTN77d2 (This link is being provided for informational/ educational purposes only.) Blood 08/18/2022 9:20 AM CDT 08/19/2022 3:09 AM CDT Narrative Resulting Agency Comment Performing Organization Information: ? CB ? [facility] ? [address] [place] [address] ? Oscar Becerril Tarsha Zelaya PA-C LAB - NON-BE [facility] BLOOD LABS [facility] [address] [phone] * (ABNORMAL) TSH WITH FREE T4 REFLEX ([facility]) (02/05/2022 2:46 PM DOUBLE BACK OPERATOR) Pathologist [facility] TSH 4.61(H) mIU/L [facility] Comment: ?Reference Range ?> or = 20 Years ??0.40-4.50 ? Ranges ?First trimester ?0.26-2.66 ?Second trimester ?? 0.55-2.73 ?Third trimester ?0.43-2.91 T4 Free, Non-Dialysis 1.2 0.8 - 1.8 ng/dL [facility] Blood 02/05/2022 2:46 PM DOUBLE BACK OPERATOR 02/06/2022 2:27 AM DOUBLE BACK OPERATOR Narrative Resulting Agency Comment Performing Organization Information: ? CB ? [facility] ? [address] [facility] [place] [address] ? Oscar Becerril M.D. Tarsha Zelaya PA-C LAB - NON-BE [place] BLOOD LABS [facility] [address] [place], [place] [id number] [place] [address] * Colonoscopy - HIM Scan (07/03/2020) Provider Outside PROCEDURES from Last 3 Months or Most Recently Relevant to Health Maintenance Care Teams Steel Cutter Relationship Specialty Start Date End Date Tarsha Zelaya PA-C [address], [facility] [address] [place] [address] PCP - General Family Medicine 08/14/20 Tarsha Zelaya PA-C [address] , [facility] [address] [place] [address] Assigned PCP 07/29/19
--- OUTSIDE RECORDS SUMMARY | 2023-11-17 12:30 | XMS_ITS | Encounter Summary ---
Author Organization [facility] Address [address] [place] [address] Care Team Providers Care Habilitation Specialist Name Role Phone Tarsha Zelaya PA-C Unavailable + [phone] Tarsha Zelaya PA-C Primary Care Provid er Encounter Details Date Type Department Care Team (Latest Contact Info) Description 08/18/2023 Travel Social History Tobacco Use Types Packs/Day Years [...] Description 12/30/2023 1:00 PM CDT Office Visit [facility] [address] [place] [phone] Tarsha Zelaya PA-C [address], [facility] [address] [place] [address] documented as of this encounter Visit Diagnoses Not on filedocumented in this encounter Additional Health Concerns Assessment Noted Time PHQ-9 Depression Total Score: 6 11/02/19 19 9:35 AM CDT documented as of this encounter Care Teams Habilitation Specialist Relationship Specialty Start Date End Date Tarsha Zelaya PA-C [address], [address] [address] PCP - General Family Medicine 08/14/20 Tarsha Zelaya PA-C [address], [address] [address] Assigned PCP 07/29/19 documented as of this encounter
--- OUTSIDE RECORDS SUMMARY | 2023-11-17 12:30 | XMS_ITS | Referral Summary ---
Author Organization Central Address [address] [place] [address] Care Team Providers Care Dress Fitter Name Role Phone Tarsha Zelaya PA-C Unavailable [phone] Tarsha Zelaya PA-C Primary Care Provid er Encounters Date Type Department Care Team Description 08/18/2023 Travel 08/18/2023 9:30 AM CDT Office Visit [facility] [address] [place] [address] Valeria Mon MD Epigastric pain (Primary Dx); Mixed hyperlipidemia; Essential hypertension, benign; Hypothyroidism, unspecified type; Type 2 diabetes mellitus without complication, without long-term current use of insulin (H); Gastroesophageal reflux disease without esophagitis; Migraine without aura and without status migrainosus, not intractable; Herpes simplex virus infection; Seasonal allergic rhinitis due to other allergic trigger from Last 3 Months Allergies Active Allergy Reactions Criticality Noted Date Comments Amlodipine Low 10/11/2017 Peripheral edema Erythromycin Medium GI upset Hydrochlorothiazide Fatigue Low 10/11/2017 Penicillins Hives [place] 01/18/2012 Rash and swelling Medications Medication Sig [...] BREAKFAST AND THEN EAT BREAKFAST 90 capsule 1 08/18/2023 Active potassium chloride ER (MICRO-K) 10 MEQ CR capsuleIndications:E ssential hypertension, benign Take 1 capsule (10 mEq) by mouth daily 90 capsule 1 08/18/2023 Active fluticasone (FLONASE) 50 MCG/ACT nasal sprayIndications:Sea jose alberto allergic rhinitis due to other allergic trigger [place] 1 spray into both nostrils daily 16 [...] due to excess calories 05/09/2015 08/18/2023 [facility] 01/18/2012 08/22/2023 Overview: State Tier Level: Tier 1 Status: n/a Rehabilitation Center Manager: See Letters for [facility] Care Plan Papanicolaou smear of cervix with atypical squamous cells of undetermined significance (ASC-US) 12/10/2004 11/01/2007 Pure hyperglyceridemia 11/27/200304/27 Dysphagia 11/23/2001 10/29/2006 Overview: Problem list name updated by automated process. Provider to review and confirm Imo Update utility Allergic rhinitis due to pollen 10/29/2009 Obesity 05/09/2015 Overview: Problem list name updated by automated process. Provider to review Immunizations Name Administration Dates Next Due COVID-19 MONOVALENT 12+ (Pfizer) 04/22/2020,03/08 HepB 10/20/2005,04/21/2005,03/09/2005 Influenza (IIV3) PF 10/28/2011, 1,01/05/2008, 999,01/13/1998,12/21/1996 Influenza Vaccine >6 months,quad, PF ,02/05/2022,02/11/2021, 020,01/19/2017,05/09/2015 Influenza Vaccine, 6+MO IM (QUADRIVALENT W/PRESERVATIVES) 12/14/2018 TD,PF 7+ (Tenivac) 10/29/2006,06/05/1996 TDAP (Adacel,Boostrix) 02/05/2022 TDAP Vaccine (Boostrix) 10/28/2011 Social History Tobacco Use Types Packs/Day Years [...] T Respiratory Rate 16 03/04/2022 11:26 AM BID ANALYST Oxygen Saturation 97% 08/18/2023 9:31 AM CDT Inhaled Oxygen Concentration - - Weight 95.7 kg (211 lb) 08/18/2023 9:31 AM CDT Height 163.8 cm (5' 4.5) 02/18/2023 8:09 AM BID ANALYST Body Mass Index 35.66 02/18/2023 8:09 AM BID ANALYST Plan of Treatment Upcoming Encounters Date Type Department Care Team (Late st Contact Info) Description 12/30/2023 1:00 PM CDT Office Visit [facility] [address] [place] [address] [address] [place] [phone] Tarsha Zelaya PA-C [address] [facility] [address] [place] [address] (work) Procedures Procedure Name Priority Date/Time Associated Diagnosis [...] without long-term current use of insulin (H) LA COLLECTION VENOUS BLOOD VENIPUNCTURE Routine 08/18/2023 9:33 [...] T4 REFLEX ([facility]) Routine 02/05/2022 2:46 PM BID ANALYST Hypothyroidism, unspecified type COLONOSCOPY - HIM SCAN Routine 07/03/2020 from Last 3 Months or Most Recently Relevant to Health Maintenance Results * Upper GI Endoscopy - HIM Scan (09/12/2023) Patient Reported PROCEDURES * US Abdomen Complete (08/23/2023) Anatomical Region Laterality Modality Abdomen/Pelvis Other Narrative 08/23/[address] [place] [address], [address] [place] [address] [place] : 1970 Req Phys: Valeria Mon MD Patient name: SHANEKA MOMIN Clinic: [facility] Dept No: [id number] US ABDOMEN COMPLETE Exam Date: 08/23/2023 EXAM: US ABDOMEN COMPLETE LOCATION: [facility] [place] DATE: 08/23/2023 INDICATION: Epigastric pain. COMPARISON: MR [...] Page 2 of 2 Valeria Mon MD IM US ORDERABLES * (ABNORMAL) Lipase ([facility]) (08/18/2023 10:32 AM CDT) Lipase 89(H) 7 - 60 U/L [facility] Blood 08/18/2023 10:3 2 AM CDT 08/19/2023 1:38 AM CDT Narrative Resulting Agency Comment Performing Organization Information: ? [place] ? [facility] ? [address] [facility] [place] [address] ? Oscar Becerril Valeria Mon MD LAB - NON-BEFLOWER BLO OD LABS [facility] [address] [place] [address], [facility] [phone] * ALBUMIN RANDOM URINE QUANTITATIVE ([facility]) (08/18/2023 10:03 AM CDT) Albumin mg/L 30 30 [facility] Creatinine Urine mg/dL 200 300 mg/dL [facility] Albumin Urine mg/g Cr <30 30 MG/G Creatinine [facility] Urine 08/18/2023 10:0 3 AM CDT Valeria Mon MD LAB - NON-BEFLOWER NON -BLOOD Performing Organization Address City/[facility] Co de Phone Number [facility] INTERNAL * [...] Laterality Modality Breast Bilateral Other Narrative 05/06/2023 [address] [facility], [address] [place] [address] [place] : 1970 Req Phys: Tarsha Zelaya PA-C Patient name: SHANEKA MOMIN Clinic: [facility] Dept No: [id number] MAMMOGRAM SCREENING DAVID BILATERAL Exam Date: 05/06/2023 EXAM: MAMMOGRAM SCREENING DAVID BILATERAL LOCATION: [facility] [place] DATE: 05/06/2023 INDICATION: Asymptomatic. Screening Mammogram. COMPARISON: [...] health insurance. Recommendations are based on the [employer] Appropriateness Criteria. Patients with [...] 02/18/2023 Tarsha Zelaya PA-C LAB - NON-BE FLOWER BLOOD LABS [facility] * DIABETIC (DILATED) EYE EXAM (12/03/2022) Patient Reported PROCEDURES * ThinPrep Pap and HPV (mRNa E6/E7) {HPV always run}([facility]) (11/26/2022 1:57 PM CDT) Clinical History SEE COMMENT [facility] Comment:SCREENING LMP SEE COMMENT [facility] Comment:HY PARTIAL Last Pap Diagnosis SEE COMMENT [facility] Comment:[id number] Prev Bx Dx SEE COMMENT [facility] Comment:[id number] Source SEE COMMENT [facility] Comment:Cervix Statement of Adequacy SEE COMMENT [facility] Comment: Satisfactory for evaluation. Endocervical/transformation zone component absent. Descriptive Diagnosis SEE COMMENT [facility] CAT Comment: Cytology Results: Negative for intraepithelial lesion or malignancy. Brick Wheeler: SEE COMMENT [facility] CAT Comment: JXD, CT(ASCP) CT Screening location: [address] ??[address] Comment SEE COMMENT [facility] Comment: EXPLANATORY NOTE: The Pap is a [...] Client Letter) showing TIS test codes, see [email or web address]/Resources, and navigate to [facility]>Physician Materials>TIS Client Letter. You can also call for test code assistance. HPV mRNA E6/E7 Not Detected Not Detected KATHRYN [facility] Comment: Methodology: Big Data Developer-Mediated Amplification This assay detects E6/E7 viral messenger RNA (mRNA) from 14 high-risk HPV types (16,18,31,33,35,39,45,51,52,56,58,59,66,68). Cervical sources are required for HPV testing. If a vaginal source from a patient who has had a total hysterectomy with removal of cervix was submitted, please contact the testing laboratory for alternative testing options. For additional information, please refer to http://education.Riiid/faq/IUC243u0 (This link if provided for information/ educational purposes only.) Cervical 11/26/2022 1:57 PM CDT 11/27/2022 1:34 AM CDT Narrative Resulting Agency Comment Performing Organization Information: ? [place] ? [facility] ? [address] [place] [address] ? Oscar Becerril Tarsha Zelaya PA-C LAB - NON-BE FLOWER NON-BLOOD Performing Organization Address City/[facility]/ZIP Co de Phone Number [facility] [address] [phone] * HEPATITIS C ANTIBODY ([facility]) (08/18/2022 9:20 AM CDT) HCV Antibody NON-REACTI VE NON-REACT BOLIVAR [facility] SIGNAL TO CUT OFF - [facility] 0.08 <1.00 [facility] Comment: HCV antibody was non-reactive. There is no laboratory evidence of HCV infection. In most cases, no further action is required. However, if recent HCV exposure is suspected, a test for HCV RNA (test code 26560) is suggested. For additional information please refer to http://education.Riiid/faq/SXE37g1 (This link is being provided for informational/ educational purposes only.) Blood 08/18/2022 9:20 AM CDT 08/19/2022 3:09 AM CDT Narrative Resulting Agency Comment Performing Organization Information: ? CB ? [facility] ? [address] [facility] [place] [address] ? Oscar Becerril Tarsha Zelaya PA-C LAB - NON-BE FLOWER BLOOD LABS Performing Organization Address City/[facility]/ZIP Co de Phone Number [facility] [address] [place], [place] [phone] [place] [address] * (ABNORMAL) TSH WITH FREE T4 REFLEX ([facility]) (02/05/2022 2:46 PM BID ANALYST) TSH 4.61(H) mIU/L [facility] Comment: ?Reference Range ?> or = 20 Years ??0.40-4.50 ? Ranges ?First trimester ?0.26-2.66 ?Second trimester ?? 0.55-2.73 ?Third trimester ?0.43-2.91 T4 Free, Non-Dialysis 1.2 0.8 - 1.8 ng/dL [facility] Blood 02/05/2022 2:46 PM BID ANALYST 02/06/2022 2:27 AM BID ANALYST Narrative Resulting Agency Comment Performing Organization Information: ? CB ? [facility] ? [address] [place] [address] ? Oscar Becerril M.D. Tarsha Zelaya PA-C LAB - NON-BE FLOWER BLOOD LABS [facility] [address] [place], [place] [id number] [place] [address] * Colonoscopy - HIM Scan (07/03/2020) Provider Outside PROCEDURES from Last 3 Months or Most Recently Relevant to Health Maintenance Care Teams Dress Fitter Relationship Specialty Start Date End Date Tarsha Zelaya PA-C [address] , [address] [address] PCP - General Family Medicine 08/14/20 Tarsha Zelaya PA-C [address] , [address] [address] Assigned PCP 07/29/19
--- OUTSIDE RECORDS SUMMARY | 2023-11-17 12:31 | XMS_ITS | Encounter Summary ---
Author Organization [place] Address [address] [place] [address] Care Team Providers Care Vegetable Loader Machine Operator Name Role Phone Reny Connolly MD Primary Care Provider [phone] Tarsha Zelaya PA-C Unavailable +- [phone] Fermín Santos Unavailable Unavailable Tarsha Zelaya PA-C Primary Care Provid er Encounter Details Date Type Department Care Team (Late st Contact Info) Description 03/20/2020 MyC Medical Advice [facility] [address] [place] [address] [address] [place] [address] Tarsha Zelaya PA-C [address] , [facility] [address] [place] [address] Social History Tobacco Use Types Packs/Day Years Used Date Smoking Tobacco: Never Smokeless Tobacco: Never Alcohol Use Standard Drinks/Week Comments Yes 0.8 (1 standard drink = 0.6 oz p ure alcohol) occ PHQ-2 Answer Date Recorded PHQ-2 Score 0 04/27/2019 Sex and Gender Information Value Date Recorded Sex Assigned at Female 06/11/2021 3:02 PM CDT Gender Identity Not on file Sexual Orientation Not on file COVID-19 Exposure Response Date Recorded In the last month, have you been in contact with someone who was confirmed or suspected to have Coronavirus / COVID-19? No / Unsure 03/21/2020 1:37 PM [employer] HCM CONSULTANT documented as of this encounter Plan of Treatment Upcoming Encounters Date Type Department Care Team (Late st Contact Info) Description 12/30/2023 1:00 PM CDT Office Visit [facility] [address] [place] [address] [place] [address] Tarsha Zelaya PA-C [address], [address] [address] documented as of this encounter Visit Diagnoses Not on filedocumented in this encounter Additional Health Concerns Infection Onset Date Last Indicated Resolved Time Rule Out COVID-19 03/20/2020 03/20/2020 03/21/2020 9:31 AM [employer] HCM CONSULTANT Assessment Noted Time PHQ-9 Depression Total Score: 6 11/02/19 19 9:35 AM CDT documented as of this encounter Care Teams Vegetable Loader Machine Operator Relationship Specialty Start Date End Date Reny Connolly MD [address], [address] [address] PCP - General 03/24/99 08/13/20 Tarsha Zelaya PA-C [address], [address] [address] PCP - General Family Medicine 08/14/20 Tarsha Zelaya PA-C [address], [address] [address] Assigned PCP 07/29/19 Fermín Santos MTM Pharmacist 10/11/19 01/02/23 documented as of this encounter
--- OUTSIDE RECORDS SUMMARY | 2023-11-17 12:31 | XMS_ITS | Encounter Summary ---
Author Organization [place] Address [address] [place] [address] Care Team Providers Care Sales Attendant Building Materials Name Role Phone Reny Connolly MD Primary Care Provider [phone] Tarsha Zelaya PA-C Unavailable + [phone] Reny Connolly MD Unavailable [phone] Tarsha Zelaya PA-C Unavailable + [phone] Fermín Santos Unavailable Unavailable Tarsha Zelaya PA-C Primary Care Provid er Reason for Visit * Reason Onset Date Comments ENGRAVING PRESS OPERATOR - INTRODUCTION 02/24/2012 Encounter Details Date Type Department Care Team (Late st Contact Info) Description 02/24/2012 Telephone [facility] [address] [address] [place] [address] Reny Connolly MD [address] , [facility] [address] [place] [address] ENGRAVING PRESS OPERATOR - INTRODUCTION Social History Tobacco Use Types Packs/Day Years Used Date Smoking Tobacco: Never Smokeless Tobacco: Never Alcohol Use Standard Drinks/Week Comments Yes 0.8 (1 standard drink = 0.6 oz p ure alcohol) occ Sex and Gender Information Value Date Recorded Sex Assigned at Female 06/11/2021 3:02 PM CDT Gender Identity Not on file Sexual Orientation Not on file documented as of this encounter Miscellaneous Notes * Telephone Encounter - Cynthia Sandoval - 03/02/2012 1:00 PM CATALYST RECOVERY OPERATOR Outreach to pt attempted.?? Left message on voice mail with call back information and request that pt return call. Plan:?? Will attempt to contact pt in 3 to 6 business days and await response to message. Cynthia Jones R.N. LYST RECOVERY OPERATOR * Telephone Encounter - yCnthia Sandoval - 02/24/2012 3:14 PM CATALYST RECOVERY OPERATOR Outreach to pt attempted.?? Left message on voice mail with call back information and request that pt return call. Plan:?? Will attempt to contact pt in 3 to 6 business days and await response to message. Cynthia Jones R.N. LYST RECOVERY OPERATOR documented in this encounter Plan of Treatment Upcoming Encounters Date Type Department Care Team (Late st Contact Info) Description 12/30/2023 1:00 PM CDT Office Visit [facility] [address] [place] [address] [place] [address] Tarsha Zelaya PA-C [address] [address] documented as of this encounter Visit Diagnoses Not on filedocumented in this encounter Additional Health Concerns Infection Onset Date Last Indicated Resolved Time Rule Out COVID-19 03/20/2020 03/20/2020 03/21/2020 9:31 AM CATALYST RECOVERY OPERATOR documented as of this encounter Care Teams Sales Attendant Building Materials Relationship Specialty Start Date End Date Reny Connolly MD [address] [address] PCP - General 03/24/99 08/13/20 Tarsha Zelaya PA-C [address], [address] [address] PCP - General Family Medicine 08/14/20 Tarsha Zelaya PA-C [address], [address] [address] Assigned PCP 10/09/17 06/30/19 Reny Connolly MD [address], [address] [address] Assigned PCP 07/01/19 07/28/19 Tarsha Zelaya PA-C [address], [address] [address] Assigned PCP 07/29/19 Fermín Santos [facility] Pharmacist 10/11/19 01/02/23 documented as of this encounter
--- OUTSIDE RECORDS SUMMARY | 2023-11-17 12:31 | XMS_ITS | Encounter Summary ---
Author Organization [place] Address [address] [place] [address] Care Team Providers Care Senior Reliability Engineer Name Role Phone Reny Connolly MD Primary Care Provider [phone] Tarsha Zelaya PA-C Unavailable + [phone] Reny Connolly MD Unavailable [phone] Tarsha Zelaya PA-C Unavailable + [phone] Fermín Santos Unavailable Unavailable Tarsha Zelaya PA-C Primary Care Provid er Encounter Details Date Type Department Care Team (Late st Contact Info) Description 02/13/2016 MyC Medical Advice [facility] [address] [address] [place] [phone] Ofe Hassan CMA Social History Tobacco Use Types Packs/Day Years [...] encounter Miscellaneous Notes * Telephone Encounter - Ofe Hassan CMA - 02/13/2016 11:35 AM CSTFrom: Dejah Neville Sent: 02/13/2016 11:30 AM LOCUM TENENS To: [facility] Nurse Pool Subject: RE:echo Ok so what is going on with my heart rate then? ----- Message ----- From: Ofe Hassan CMA Sent: 02/13/2016 10:49 AM LOCUM TENENS To: Dejah Neville Subject: echo Dr Connolly wanted me to let you know that your Echo was normal. No heart issues. Ofe Amin M TENENS documented in this encounter Plan of Treatment Upcoming Encounters Date Type Department Care Team (Late st Contact Info) Description 12/30/2023 1:00 PM CDT Office Visit [facility] [address] [place] [address] Tarsha Zelaya PA-C [address] [address] documented as of this encounter Visit Diagnoses Not on filedocumented in this encounter Additional Health Concerns Infection Onset Date Last Indicated Resolved Time Rule Out COVID-19 03/20/2020 03/20/2020 03/21/2020 9:31 AM LOCUM TENENS documented as of this encounter Care Teams Senior Reliability Engineer Relationship Specialty Start Date End Date Reny Connolly MD [address] , [address] [address] PCP - General 03/24/99 08/13/20 Tarsha Zelaya PA-C [address], [address] [address] PCP - General Family Medicine 08/14/20 Tarsha Zelaya PA-C [address] , [address] [address] Assigned PCP 10/09/17 06/30/19 Reny Connolly MD [address] [address] Assigned PCP 07/01/19 07/28/19 Tarsha Zelaya PA-C [address] , [address] [address] Assigned PCP 07/29/19 Fermín Santos [facility] Pharmacist 10/11/19 01/02/23 documented as of this encounter
--- OUTSIDE RECORDS SUMMARY | 2023-11-17 12:31 | XMS_ITS | Encounter Summary ---
Author Organization [place] Address [address] [place] [address] Care Team Providers Care Planting Supervisor Name Role Phone Reny Connolly MD Primary Care Provider [phone] Tarsha Zelaya PA-C Unavailable + [phone] Reny Connolly MD Unavailable [phone] Tarsha Zelaya PA-C Unavailable + [phone] Fermín Santos Unavailable Unavailable Tarsha Zelaya PA-C Primary Care Provid er Encounter Details Date Type Department Care Team (Late st Contact Info) Description 09/13/2018 MyC Medical Advice [facility] [address] [place] [address] Tarsha Zelaya PA-C [address] , [address] [place], [place] [address] Social History Tobacco Use Types Packs/Day Years Used Date Smoking Tobacco: Never Smokeless Tobacco: Never Alcohol Use Standard Drinks/Week Comments Yes 0.8 (1 standard drink = 0.6 oz p ure alcohol) occ PHQ-2 Answer Date Recorded PHQ-2 Score 0 03/14/2018 Sex and Gender Information Value Date Recorded Sex Assigned at Female 06/11/2021 3:02 PM CDT Gender Identity Not on file Sexual Orientation Not on file documented as of this encounter Plan of Treatment Upcoming Encounters Date Type Department Care Team (Late st Contact Info) Description 12/30/2023 1:00 PM CDT Office Visit [facility] [address] [address] Tarsha Zelaya PA-C [address] , [address] [address] documented as of this encounter Visit Diagnoses Not on filedocumented in this encounter Additional Health Concerns Infection Onset Date Last Indicated Resolved Time Rule Out COVID-19 03/20/2020 03/20/2020 03/21/2020 9:31 AM CONTACT LENS MOLDER Assessment Noted Time PHQ-9 Depression Total Score: 20 017 7:24 AM CDT documented as of this encounter Care Teams Planting Supervisor Relationship Specialty Start Date End Date Reny Connolly MD [address], [address] [address] PCP - General 03/24/99 08/13/20 Tarsha Zelaya PA-C [address] [address] PCP - General Family Medicine 08/14/20 Tarsha Zelaya PA-C [address] [address] Assigned PCP 10/09/17 06/30/19 Reny Connolly MD [address] [address] Assigned PCP 07/01/19 07/28/19 Tarsha Zelaya PA-C [address], [address] [place] [address] Assigned PCP 07/29/19 Fermín Santos Pharmacist 10/11/19 01/02/23 documented as of this encounter
--- OUTSIDE RECORDS SUMMARY | 2023-11-17 12:31 | XMS_ITS | Encounter Summary ---
Author Organization [place] Address [address] [place] [address] Care Team Providers Care Armature Connector Name Role Phone Reny Connolly MD Primary Care Provider [phone] Tarsha Zelaya PA-C Unavailable + [phone] Reny Connolly MD Unavailable [phone] Tarsha Zelaya PA-C Unavailable + [phone] Fermín Santos Unavailable Unavailable Tarsha Zelaya PA-C Primary Care Provid er Encounter Details Date Type Department Care Team (Late st Contact Info) Description 05/31/2019 MyC Medical Advice [facility] [address] [place] [address] Tarsha Zelaya PA-C [address] , [address] [place], [place] [phone] Social History Tobacco Use Types Packs/Day Years [...] Description 12/30/2023 1:00 PM CDT Office Visit [facility] [address] [address] Tarsha Zelaya PA-C [address] , [address] [address] documented as of this encounter Visit Diagnoses Not on filedocumented in this encounter Additional Health Concerns Infection Onset Date Last Indicated Resolved Time Rule Out COVID-19 03/20/2020 03/20/2020 03/21/2020 9:31 AM GIVER Assessment Noted Time PHQ-9 Depression Total Score: 6 11/02/19 19 9:35 AM CDT documented as of this encounter Care Teams Armature Connector Relationship Specialty Start Date End Date Reny Connolly MD [address], [address] [address] PCP - General 03/24/99 08/13/20 Tarsha Zelaya PA-C [address] [address] PCP - General Family Medicine 08/14/20 Tarsha Zelaya PA-C [address] [address] Assigned PCP 10/09/17 06/30/19 Reny Connolly MD [address] [address] Assigned PCP 07/01/19 07/28/19 Tarsha Zelaya PA-C [address], [address] [place] [address] Assigned PCP 07/29/19 Fermín Santos Pharmacist 10/11/19 01/02/23 documented as of this encounter
--- OUTSIDE RECORDS SUMMARY | 2023-11-17 12:31 | XMS_ITS | Encounter Summary ---
Author Organization [facility] Address [address] [place] [address] Care Team Providers Care Digital Media Strategist Name Role Phone Reny Connolly MD Primary Care Provider [phone] Tarsha Zelaya PA-C Unavailable + [phone] Reny Connolly MD Unavailable [phone] Tarsha Zelaya PA-C Unavailable + [phone] Fermín Santos Unavailable Unavailable Tarsha Zelaya PA-C Primary Care Provid er Reason for Visit * Reason Onset Date Comments Refill Request 05/09/2019 Encounter Details Date Type Department Care Team (Late st Contact Info) Description 05/09/2019 MyC Refill [facility] [address] [place] [address] [place] [address] Tarsha Zelaya PA-C [address] , [facility] [address] [place], [place] [phone] Refill Request Social History Tobacco Use Types Packs/Day Years [...] Description 12/30/2023 1:00 PM CDT Office Visit [facility] [address] [place] [phone] Tarsha Zelaya PA-C [address], [address] [address] documented as of this encounter Visit Diagnoses Diagnosis ESOPHAGEAL STRICTURE Stricture and stenosis of esophagus documented in this encounter Additional Health Concerns Infection Onset Date Last Indicated Resolved Time Rule Out COVID-19 03/20/2020 03/20/2020 03/21/2020 9:31 AM TERRAZZO ROLLER Assessment Noted Time PHQ-9 Depression Total Score: 6 11/02/19 19 9:35 AM CDT documented as of this encounter Care Teams Digital Media Strategist Relationship Specialty Start Date End Date Reny Connolly MD [address], [address] [address] PCP - General 03/24/99 08/13/20 Tarsha Zelaya PA-C [address], [address] [address] PCP - General Family Medicine 08/14/20 Tarsha Zelaya PA-C [address], [address] [address] Assigned PCP 10/09/17 06/30/19 Reny Connolly MD [address] , [address] [address] Assigned PCP 07/01/19 07/28/19 Tarsha Zelaya PA-C [address] , [facility] [address] [place] [address] Assigned PCP 07/29/19 Fermín Santos [place] Pharmacist 10/11/19 01/02/23 documented as of this encounter
--- OUTSIDE RECORDS SUMMARY | 2023-11-17 12:31 | XMS_ITS | Encounter Summary ---
Author Organization [facility] Address [address] [place] [address] Care Team Providers Care Rn Picu Name Role Phone Tarsha Zelaya PA-C Unavailable + [phone] Fermín Santos Unavailable Unavailable Tarsha Zelaya PA-C Primary Care Provid er Encounter Details Date Type Department Care Team (Late st Contact Info) Description 08/14/2020 MyC Medical Advice [facility] [address] [place] [phone] Sandy Landin Social History Tobacco Use Types Packs/Day Years Used Date Smoking Tobacco: Never Smokeless Tobacco: Never Alcohol Use Standard Drinks/Week Comments Yes 0.8 (1 standard drink = 0.6 oz p ure alcohol) occ PHQ-2 Answer Date Recorded PHQ-2 Score 0 07/10/2020 Sex and Gender Information Value Date Recorded Sex Assigned at Female 06/11/2021 3:02 PM CDT Gender Identity Not on file Sexual Orientation Not on file documented as of this encounter Plan of Treatment Upcoming Encounters Date Type Department Care Team (Late Contact Info) Description 12/30/2023 1:00 PM CDT Office Visit [facility] [address] [place] [address] [place] [phone] Tarsha Zelaya PA-C [address] [place] [address] documented as of this encounter Visit Diagnoses Not on filedocumented in this encounter Additional Health Concerns Assessment Noted Time PHQ-9 Depression Total Score: 6 11/02/19 19 9:35 AM CDT documented as of this encounter Care Teams Rn Picu Relationship Specialty Start Date End Date Tarsha Zelaya PA-C [address] [address] PCP - General Family Medicine 08/14/20 Tarsha Zelaya PA-C [address] [address] Assigned PCP 07/29/19 Fermín Santos Pharmacist 10/11/19 01/02/23 documented as of this encounter
--- OUTSIDE RECORDS SUMMARY | 2023-11-17 12:31 | XMS_ITS | Encounter Summary ---
Author Organization [facility] Address [address] [place] [address]. [place] [address] Care Team Providers Care Newspaper Carriers Supervisor Name Role Phone Reny Connolly MD Primary Care Provider [phone] Tarsha Zelaya PA-C Unavailable + [phone] Fermín Santos Unavailable Unavailable Tarsha Zelaya PA-C Primary Care Provid er Encounter Details Date Type Department Care Team (Late st Contact Info) Description 10/18/2019 MyC Medical Advice [facility] [address] [facility] [address] [place] [phone] Fermín Santos Social History Tobacco Use Types Packs/Day Years [...] have Coronavirus / COVID-19? 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
--- OUTSIDE RECORDS SUMMARY | 2023-11-17 12:31 | XMS_ITS | Encounter Summary ---
Author Organization [facility] Address [address] [place] [address] Care Team Providers Care Structures Assembler Name Role Phone Reny Connolly MD Primary Care Provider [phone] Tarsha Zelaya PA-C Unavailable + [phone] Reny Connolly MD Unavailable [phone] Tarsha Zelaya PA-C Unavailable + [phone] Fermín Santos Unavailable Unavailable Tarsha Zelaya PA-C Primary Care Provid er Encounter Details Date Type Department Care Team ([facility] Contact Info) Description 12/27/[place] [facility] [facility] [address] [place] [phone] jT Shelton Social History Tobacco Use Types Packs/Day Years [...] Description 12/30/2023 1:00 PM CDT Office Visit [facility] [address] [phone] Tarsha Zelaya PA-C [address] [address] documented as of this encounter Visit Diagnoses Not on filedocumented in this encounter Additional Health Concerns Infection Onset Date Last Indicated Resolved Time Rule Out COVID-19 03/20/2020 03/20/2020 03/21/2020 9:31 AM 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 Assessment Noted Time PHQ-9 Depression Total Score: 017 7:24 AM CDT documented as of this encounter Care Teams Structures Assembler Relationship Specialty Start Date End Date Reny Connolly MD [address] [address] PCP - General 03/24/99 08/13/20 Tarsha Zelaya PA-C [address] [address] PCP - General Family Medicine 08/14/20 Tarsha Zelaya PA-C [address] [address] Assigned PCP 10/09/17 06/30/19 Reny Connolly MD [address] [address] Assigned PCP 07/01/19 07/28/19 Tarsha Zelaya PA-C [address] [address] Assigned PCP 07/29/19 Fermín Santos Pharmacist 10/11/19 01/02/23 documented as of this encounter
--- OUTSIDE RECORDS SUMMARY | 2023-11-17 12:31 | XMS_ITS | Encounter Summary ---
Author Organization [facility] Address [address] [place] [address] Care Team Providers Care Architect Naval Name Role Phone Reny Connolly MD Primary Care Provider [phone] Tarsha Zelaya PA-C Unavailable + [phone] Reny Connolly MD Unavailable [phone] Tarsha Zelaya PA-C Unavailable + [phone] Fermín Santos Unavailable Unavailable Tarsha Zelaya PA-C Primary Care Provid er Encounter Details Date Type Department Care Team (Late st Contact Info) Description 12/12/2018 MyC Medical Advice [facility] [address] [place] [address] Tarsha Zelaya PA-C [address] , [place] [address] [place], [place] [phone] Social History Tobacco Use Types Packs/Day Years Used Date Smoking Tobacco: Never Smokeless Tobacco: Never Alcohol Use Standard Drinks/Week Comments Yes 0.8 (1 standard drink = 0.6 oz p ure alcohol) occ PHQ-2 Answer Date Recorded PHQ-2 Score 1 11/01/2018 Sex and Gender Information Value Date Recorded Sex Assigned at Female 06/11/2021 3:02 PM CDT Gender Identity Not on file Sexual Orientation Not on file documented as of this encounter Plan of Treatment Upcoming Encounters Date Type Department Care Team (Late st Contact Info) Description 12/30/2023 1:00 PM CDT Office Visit [facility] [address] [phone] Tarsha Zelaya PA-C [address] , [address] [address] documented as of this encounter Visit Diagnoses Not on filedocumented in this encounter Additional Health Concerns Infection Onset Date Last Indicated Resolved Time Rule Out COVID-19 03/20/2020 03/20/2020 03/21/2020 9:31 AM RESERVATION AGENT Assessment Noted Time PHQ-9 Depression Total Score: 6 11/02/19 19 9:35 AM CDT documented as of this encounter Care Teams Architect Naval Relationship Specialty Start Date End Date Reny Connolly MD [address], [address] [address] PCP - General 03/24/99 08/13/20 Tarsha Zelaya PA-C [address] [address] PCP - General Family Medicine 08/14/20 Tarsha Zelaya PA-C [address] [address] Assigned PCP 10/09/17 06/30/19 Reny Connolly MD [address] [address] Assigned PCP 07/01/19 07/28/19 Tarsha Zelaya PA-C [address], [address] [place] [address] Assigned PCP 07/29/19 Fermín Santos Pharmacist 10/11/19 01/02/23 documented as of this encounter
[2023-11-17 12:56] LABS: Albumin* 4.8 g/dL (3.3-5.0); Chloride* 101 mmol/L (96-114)
[2023-11-17 12:57] LABS: Potassium* 3.5 mmol/L (3.6-5.1); Sodium* 138 mmol/L (135-149)
[2023-11-17 12:59] LABS: Anion Gap 10 mEq/L (7-15); Aspartate Amino Transferase* 31 U/L (12-35); Bilirubin Total* 0.7 mg/dL (0.1-1.5); Blood Urea Nitrogen* 19 mg/dL (7-30); Carbon Dioxide* 27 mmol/L (20-32); Cholesterol* 154 mg/dL (90-199); Creatinine* 0.8 mg/dL (0.5-1.5); Estimated Glomerular Filt Rate 88 ml/min
[2023-11-17 13:00] LABS: Alanine Aminotransferase* 36 U/L (4-35); Alkaline Phosphatase* 81 U/L (40-150); Glucose* 110 mg/dL (60-115); HDL Cholesterol* 62 mg/dL (>=50); LDL Cholesterol Calculated 64 mg/dL (<100); Triglycerides* 140 mg/dL (40-149)
[2023-11-17 13:21] LABS: Free T4 Free Thyroxine* 1.54 ng/dL (0.70-1.85)
[2023-11-17 13:35] LABS: Thyroid Stimulating Hormone* 0.137 uIU/mL (0.270-4.20)
[2023-11-17 13:56] LABS: Hemoglobin A1C* 5.8 % (0-5.6)
[2023-11-19 02:14] LABS: Free T3 3.1 pg/mL (2.5-4.3)
== END 2023-11-17 12:24 | disposition home or self-care (01) ==
PROVIDERS: PCP Physician Assistant Medical; Visit Provider Internal Medicine Endocrinology, Diabetes & Metabolism
DX: E11.9 Type 2 diabetes mellitus without complications (principal)
CPT/HCPCS: 36415; 80053; 80061; 83036; 84439; 84443; 84481

== ENCOUNTER 2024-09-14 10:25 | Outpatient (CLI) | payer BC, SELFPAY ==
[2024-09-14 11:44] LABS: Albumin* 4.4 g/dL (3.3-5.0); Chloride* 101 mmol/L (96-114); Potassium* 4.2 mmol/L (3.6-5.1); Sodium* 139 mmol/L (135-149)
[2024-09-14 11:46] LABS: Alanine Aminotransferase* 46 U/L (4-35); Anion Gap 7 mEq/L (7-15); Aspartate Amino Transferase* 37 U/L (12-35); Blood Urea Nitrogen* 17 mg/dL (7-30); Carbon Dioxide* 31 mmol/L (20-32); Creatinine* 0.9 mg/dL (0.5-1.5); Estimated Glomerular Filt Rate 76 ml/min
[2024-09-14 11:47] LABS: Alkaline Phosphatase* 91 U/L (40-150); Bilirubin Total* 0.4 mg/dL (0.1-1.5); Calcium* 9.7 mg/dL (8.4-10.6); Cholesterol* 168 mg/dL (90-199); Glucose* 113 mg/dL (60-115); HDL Cholesterol* 45 mg/dL (>=50); Total Protein* 7.5 g/dL (6.0-8.3); Triglycerides* 258 mg/dL (40-149)
[2024-09-14 12:21] LABS: PTH Intact* 31.2 pg/mL (14.2-75.2)
[2024-09-14 12:22] LABS: Free T4 Free Thyroxine* 1.30 ng/dL (0.70-1.85)
[2024-09-14 12:26] LABS: Vitamin D 25 Hydroxy* 58 ng/mL (30-80)
[2024-09-14 14:01] LABS: Protein Creatinine Ratio Urine 0.25 (0-0.19)
[2024-09-16 02:03] LABS: Free T3 3.0 pg/mL (2.5-4.3)
== END 2024-09-14 10:26 | disposition home or self-care (01) ==
PROVIDERS: PCP Physician Assistant Medical; Visit Provider Internal Medicine Endocrinology, Diabetes & Metabolism
DX: E03.9 Hypothyroidism, unspecified (principal); E21.5 Disorder of parathyroid gland, unspecified; E11.9 Type 2 diabetes mellitus without complications
CPT/HCPCS: 36415; 80053; 80061; 82306; 82570; 82575; 83036; 83970; 84156; 84439; 84443; 84481